=== PATIENT | female | born 1965 | race Caucasian/White ===

== ENCOUNTER 2016-08-08 22:51 | Observation (INO) | payer OTHER ==
[~2016-08-08] VITALS: Ht 153.7 cm; Wt 63.7 kg
--- NOTE | ~2016-08-08 | HP ---
PATIENT'S NAME: NORAH JARAMILLO [facility] AGE: 51 Y [address] ROOM: [place] [address] LOCATION: [facility] [place] ADMIT DATE: 08/08/2016 History & Physical DISCHARGE DATE: FAMILY PHYSICIAN: PHYSICIAN, UNKNOWN ATTENDING PHYSICIAN: Temo Ricci DATE OF SERVICE: CHIEF COMPLAINT: Abdominal pain. HISTORY OF PRESENT ILLNESS: The patient is a 51-year-old female, who had initially thought she had some heartburn. She at lunch was not very hungry, ate some [employer], tried to drink a Sprite, began getting worse abdominal pain throughout the afternoon which migrated into the right lower quadrant. She said she felt nauseated; did not throw up. Has not had any fevers. With her pain worsening, she said she became very lightheaded. She has a history of carotid dissection. With her lightheadedness, there was concerns for repeat stroke; however, really did not demonstrate any symptoms, only had the abdominal pain. She was brought to [place] where she was evaluated. While at the hospital in [place], mainly complained of right lower quadrant pain. A CT scan was performed that revealed evidence of appendicitis. She also has a leukocytosis. The patient never had pain similar to this in the past. She has had a previous section. Her bowels normally work well outside of some constipation. Her carotid dissection is controlled with antihypertensives and baby aspirin. She also has known hyperthyroidism, which she was treated with beta-blockers. Radioiodine ablation was recommended and she would not have this performed. She has had no known heart arrhythmias. CURRENT MEDICATIONS: 1. Lisinopril. 2. Hydrochlorothiazide. 3. Norvasc. CURRENT ILLNESSES: 1. Hyperthyroidism. 2. History of cerebrovascular accident. 3. History of right carotid dissection. PAST SURGICAL HISTORY: section as well as several orthopedic operations. SOCIAL HISTORY: She is a nonsmoker. PATIENT'S NAME: NORAH JARAMILLO [facility] AGE: 51 Y [address] ROOM: [place] [address] [place] [facility] [place]MIT DATE: 08/08/2016 History & Physical DISCHARGE DATE: FAMILY PHYSICIAN: PHYSICIAN, UNKNOWN ATTENDING PHYSICIAN: Temo Ricci FAMILY HISTORY: Noncontributory. REVIEW OF SYSTEMS: She denies headache or vision changes. No chest pain or shortness of breath. She denies any melena or hematochezia. No hematuria or dysuria. She does have a history of stroke. She does have hyperthyroidism. No diabetes. PHYSICAL EXAMINATION: HEENT: Head is normocephalic, atraumatic. Eyes are anicteric. NECK: Supple. There is no lymphadenopathy. HEART: Regular rate and rhythm. No murmurs audible. LUNGS: Clear to auscultation bilaterally. ABDOMEN: Soft. She does have tenderness to palpation in the right lower quadrant. There is no rebound. She does demonstrate mild voluntary guarding. EXTREMITIES: Warm. No edema. NEUROLOGIC: Gross motor is intact. ASSESSMENT: Right lower quadrant pain, leukocytosis, and CT evidence of appendicitis. PLAN: Discussed the findings with Norah. We discussed surgery. Also discussed antibiotic treatment. Discussed risks of surgery, which include but are not limited to, bleeding, infection, abscess formation, injury to other viscera as well as wound complications. She understands the risks of surgery and would like to proceed. MD JUSTICE PINTO/shasha /[id number] D: [id number] T: [id number] HISTORY & PHYSICAL
--- NOTE | ~2016-08-08 | OR ---
PATIENT'S NAME: ROBERT JARAMILLO [facility] AGE: 51 Y [address] ROOM: [address] [address] [place] [facility] [place] DATE: 08/08/2016 OR/Procedure Report DISCHARGE DATE: FAMILY PHYSICIAN: PHYSICIAN, UNKNOWN ATTENDING PHYSICIAN: Temo Ricci SURGEON: Temo Ricci MD TESTING AND REGULATING CHIEF: DATE OF PROCEDURE: 08/09/2016 PREOPERATIVE DIAGNOSIS: Acute appendicitis. POSTOPERATIVE DIAGNOSIS: Acute appendicitis. PROCEDURE: Laparoscopic appendectomy. FINDINGS: The patient had acutely inflamed appendix. No perforation was present. ESTIMATED BLOOD LOSS: 20 mL. COMPLICATIONS: None. INDICATIONS: The patient is a 51-year-old female who presented with abdominal pain. She had CT evidence of appendicitis. We discussed appendectomy with the patient; the risks, benefits, and alternatives, and she elected to proceed. DESCRIPTION OF PROCEDURE: The patient was taken to the operating room. She was placed supine. She was given IV sedation and subsequently intubated. Her abdomen was prepped with ChloraPrep and sterilely draped. Local anesthetic was infiltrated just inferior to the umbilicus. A transverse incision was created. The abdomen was elevated. A Veress needle was inserted. Pneumoperitoneum was induced. Following this, 2 more trocars were positioned, a 5 mm suprapubic and a 12 mm left lower quadrant port. Skin overlying peritoneum was first anesthetized prior to making these incisions. Both these trocars were inserted under direct visualization. The right lower quadrant was then tented until the appendix was identified. It was acutely inflamed. It was grasped, elevated. A window was created at the base of the appendix. A MARGARITA stapler was then inserted and placed across the base of the appendix and fired. Another staple load was placed across the mesoappendix and fired. There was still a small amount of mesoappendix present with this staple load. Because of this, a third staple load was used. The appendix was then placed in an EndoCatch bag and brought out through the left lower quadrant port site. The operative field was inspected. It appeared hemostatic. Staple lines appeared intact. The area was irrigated. The fluid was removed. The PATIENT'S NAME: ROBERT JARAMILLO [facility] AGE: 51 Y [address] ROOM: [id number] [place], [place] [address] [place] [facility] [place] DATE: 08/08/2016 OR/Procedure Report DISCHARGE DATE: FAMILY PHYSICIAN: PHYSICIAN, UNKNOWN ATTENDING PHYSICIAN: Temo Ricci pneumoperitoneum was released. Trocars were removed. The trocar sites appeared hemostatic. Fascia of the 12 mm port site was approximated with 0 Vicryl suture, followed by skin closure of all 3 port sites with 4-0 Monocryl suture. Steri-Strips and sterile dressings were placed. The patient was extubated and sent to recovery in good condition. MD JUSTICE PINTO/shasha /[id number] d: 08/09/16 0314 t: 08/13/16 1407, OPERATIVE SUMMARY
[2016-08-09] MEDS ORDERED: BENADRYL25 MG PO (01:58)
[2016-08-09] MEDS ORDERED: LIPITOR40 MG PO (01:59)
[2016-08-09] MEDS ORDERED: LISINOPRIL-HCT1 EAC1 PO (01:59)
[2016-08-09] MEDS ORDERED: K-TAB ER20 MEQ PO (02:00)
[2016-08-09] MEDS ORDERED: NORVASC10 MG PO (02:00)
[2016-08-09] MEDS ORDERED: THERAGRAN-M1 TAB PO (02:01)
[2016-08-09] MEDS ORDERED: CITRACAL-VIT D1 EAC2 PO (02:14)
--- NOTE | 2016-08-09 08:17 | NUR ---
Patient to floor from PACU at 0043 by cart. PIV to L) FA infusing LR at 100 mL/hr. IM phenergan given in PACU. IV invanz given in PACU. 3 sites - umbilical, mid-lower abd and R) lower abd. Patient very sleepy but able to ambulate from cart to [facility]SU bed. Post op vitals from 0044 to 0530 - ranged from 80's to 110's over 50's to 60's. Low to mid 90's on RA. Allergic to amoxicillin (hives). Home med list needs reviewed with .
--- NOTE | 2016-08-09 08:37 | NUR ---
SIGNIFICANT EVENT: Patient alert & oriented but drowsy - resting in bed. Post op laparoscopic appendectomy. VSS on RA - some hypotension overnight but patient states this actually occurs whenever she is under any stress. Temp of 99.3 at 0400. Norcox1 given for pain - 0619. PIV to L) FA infusing LR at 100 mL/hr. Ambulate x3. Hx stroke and hyperthyroid. Home med list reviewed with patient but not with Dr Ricci. Pleasant and cooperative with cares.
[2016-08-09] MEDS ORDERED: NORCO 5-325 TA1 EACH PO (08:52)
--- NOTE | 2016-08-09 11:32 | NUR ---
DISCHARGE: Pt. was educated on discharge instructions, lap appy d/c instructions, and medication education on [place]. Verbalized understanding, no questions or concerns. Patient states that our dose of her lisinopril/HCTZ is incorrect and she is actually taking 1/2 the dose once daily. I advised her to continue her home dose and follow up with dr as needed. Left with all belongings and prescriptions. Taken to front door by aide and driven home to [place] by friend.
== END 2016-08-09 11:44 | disposition disaster alternative care site (69) ==
LOC: GMSU 22:51
PROVIDERS: ADMIT Surgery
PROC: 0DTJ4ZZ Resection of Appendix, Percutaneous Endoscopic Approach (ICD-10-PCS; principal; 2016-08-09)
DX: K35.80 Unspecified acute appendicitis (principal); E05.90 Thyrotoxicosis, unspecified without thyrotoxic crisis or storm; Z86.73 Personal history of transient ischemic attack (TIA), and cerebral infarction without residual deficits; Z79.899 Other long term (current) drug therapy
CPT/HCPCS: J1335; J7120